=== PATIENT | male | born 1995 | race Caucasian/White ===

== ENCOUNTER 2016-10-26 22:59 | Emergency (ER) | payer BC ==
[2016-10-26] MEDS ORDERED: PREDNISONE 20 MG TAB PO ONE (23:14)
[2016-10-26] MEDS ORDERED: CEFDINIR 300 MG CAPSULE PO ONE (23:14)
--- NOTE | 2016-10-26 23:15 | Emergency Department Record ---
History of Present Illness - General Chief complaint: Rash Stated complaint: RASH Time Seen by Provider: 10/26/16 23:11 Source: Patient Mode of Arrival: Ambulatory Limitations: No limitations - History of Present Illness Initial comments: 21 yo male presents to ED with a CC of a rash that began tonight. Patient reports that he was started on Amoxicillin 5 days ago for strep pharyngitis, noticed itching and redness to the chest and upper extremities tonight. Patient denies throat swelling, wheezing, or difficulty breathing. Patient denies health problems at her baselines. MD complaint: Rash Onset/Timin -: Minutes(s) Location: Chest, LUE, RUE Severity: Moderate Consistency: Constant Improves with: None Worsens with: None Context: Recent antibiotic Associated symptoms: Denies other symptoms Treatments Prior to Arrival: None - Related Data Previous Rx's Medication Instructions Recorded Cefdinir [Omnicef] 300 mg PO BID #9 cap 10/26/16 Prednisone [Prednisone 20Mg] 20 mg PO TID #12 tab 10/26/16 Allergies Allergy/AdvReac Type Severity Reaction Status Date / Time No Known Drug Allergies Allergy Verified 10/26/16 23:03 Travel Screening - Travel/Exposure Within Last 30 Days Have you traveled within the last 30 days?: No - Travel Symptoms Symptom Screening: None Review of Systems Constitutional: Denies: Chills, Fever, Malaise, Night sweats Eyes: Denies: Eye discharge, Eye pain ENT: Denies: Congestion, Ear pain, Epistaxis Respiratory: Denies: Cough, Dyspnea Cardiovascular: Denies: Chest pain, Dyspnea on exertion Endocrine: Denies: Fatigue, Heat or cold intolerance Gastrointestinal: Denies: Abdominal pain, Nausea, Vomiting Genitourinary: Denies: Incontinence, Retention Musculoskeletal: Denies: Arthralgia, Back pain, Gout, Joint swelling Skin: Reports: Change in color, Rash. Denies: Bruising, Change in hair/nails Neurological: Denies: Abnormal gait, Confusion, Headache, Seizure Psychiatric: Denies: Anxiety Hematological/Lymphatic: Denies: Anemia, Blood Clots Past Medical History - SOCIAL HISTORY Smoking Status: Never smoker - RESPIRATORY Hx Respiratory Disorders: No - CARDIOVASCULAR Hx Cardio Disorders: No - NEURO Hx Neuro Disorders: No - GI Hx GI Disorders: No - Hx Genitourinary Disorders: No - ENDOCRINE Hx Endocrine Disorders: No - MUSCULOSKELETAL Hx Musculoskeletal Disorders: No - PSYCH Hx Psych Problems: No - HEMATOLOGY/ONCOLOGY Hx Hematology/Oncology Disorders: No Family Medical History Any Significant Family History?: Yes Hx Cancer: Grandparents Hx Diabetes: Grandparents Hx Heart Disease: Grandparents Physical Exam - General General Appearance: Alert, Oriented x3, Cooperative, No acute distress Limitations: No limitations - Head Head exam: Atraumatic, Normocephalic, Normal inspection Head exam detail: negative: Abrasion, Contusion, Redding's sign, General tenderness, Hematoma, Laceration - Eye Eye exam: Normal appearance. negative: Conjunctival injection, Periorbital swelling, Periorbital tenderness, Scleral icterus - ENT Ear exam: negative: Auricular hematoma, Auricular trauma Nasal Exam: negative: Active bleeding, Discharge, Dried blood, Foreign body Mouth exam: negative: Drooling, Laceration, Muffled voice, Tongue elevation - Neck Neck exam: Normal inspection. negative: Meningismus, Tenderness - Respiratory Respiratory exam: Normal lung sounds bilaterally. negative: Rales, Respiratory distress, Rhonchi, Stridor - Cardiovascular Cardiovascular Exam: Regular rate, Normal rhythm, Normal heart sounds - GI/Abdominal GI/Abdominal exam: Soft. negative: Rebound, Rigid, Tenderness - Rectal Rectal exam: Deferred - exam: Deferred - Extremities Extremities exam: Other (urticaria to the UE's and chest on examination). negative: Calf tenderness, Pedal edema, Tenderness - Back Back exam: Reports: Normal inspection. Denies: CVA tenderness (R), CVA tenderness (L) - Neurological Neurological exam: Alert, Normal gait, Oriented X3 - Psychiatric Psychiatric exam: Normal affect, Normal mood. negative: Anxious - Skin Skin exam: Rash, Urticaria Type of lesion: Rash Distribution of rash: Chest, RUE, LUE Description of rash: Urticarial Course Vital Signs 10/26/16 23:03 Temperature 97.9 F Pulse Rate [ 58 L Pulse Ox Probe] Respiratory 16 Rate Blood Pressure 135/83 [Left Arm] Pulse Ox 100 - Reevaluation(s) Reevaluation #1: 10/26/16 23:19 Symptoms appear c/w urticaria, likely secondary to amoxicillin use. Patient denies throat swelling or difficulty breathing, and appears stable for discharge on Prednisone and Benadryl for his symptoms. Patient was instructed to stop his amoxicillin and begin Omnicef tomorrow morning for complete treatment of the patient's strep pharyngitis. Disposition Disposition: Discharge Clinical Impression: Urticaria Disposition: Home, Self-Care Condition: (2) Stable Instructions: Urticaria (ED) Additional Instructions: Return to ED if your symptoms worsen or if you have any concerns. Omnicef and and Prednisone as directed. Follow-up with your family doctor in 3-5 days as directed. Prescriptions: Cefdinir [Omnicef] 300 mg PO BID #9 cap Prednisone [Prednisone 20Mg] 20 mg PO TID #12 tab Forms: Patient Portal Access Time of Disposition: 23:21
== END 2016-10-26 23:27 | disposition home or self-care (01) ==
LOC: ER 22:59
DX: L50.0 Allergic urticaria (principal); T36.0X5A Adverse effect of penicillins, initial encounter; J02.0 Streptococcal pharyngitis
CPT/HCPCS: J7512; J3490; 99282

== ENCOUNTER 2018-04-30 08:11 | Emergency (ER) | payer BC ==
[2018-04-30] MEDS ORDERED: 0.9 % SODIUM CHLORIDE 1,000 ML BAG IV ONE (08:23)
[2018-04-30] MEDS ORDERED: ACETAMINOPHEN 1,000 MG/100 ML BTL IVPB ONE (08:23)
[2018-04-30] MEDS ORDERED: MORPHINE SULFATE 10 MG/ML VIAL IVP ONE (08:23)
--- NOTE | 2018-04-30 08:30 | Emergency Department Record ---
History of Present Illness - General Chief Complaint: Abdominal Pain Stated Complaint: SEVERE ABDOMINAL PAIN Time Seen by Provider: 04/30/18 08:22 Source: Patient Mode of Arrival: Ambulatory Limitations: No limitations - History of Present Illness Initial Comments: 22 yo male presents with right sided abdominal pain. The pain started this morning. The pain is located mid upper right abdomen. No prior abdominal surgery history. No fever or chills. No vomiting or diarrhea today but he has a decreased appetite. He had diarrhea over the last week that has resolved today. He does have constipation from time to time. It is has been mild recently. No back pain. No radiation to the scrotum or testicles. No rash. Normally he is healthy. No trauma. MD Complaint: Abdominal pain -: Hour(s) (2) Location: RUQ Radiation: None Migration to: No migration Severity: Severe Severity scale (1-10): 10 Quality: Sharp Consistency: Constant Improves With: Nothing Worsens With: Nothing Associated Symptoms: Denies other symptoms - Related Data Home Medications Medication Instructions Recorded Confirmed Last Taken No Home Med [NO HOME MEDS] 04/30/18 04/30/18 Unknown Allergies Allergy/AdvReac Type Severity Reaction Status Date / Time amoxicillin Allergy RASH Verified 04/30/18 08:18 Travel Screening - Travel/Exposure Within Last 30 Days Have you traveled within the last 30 days?: No Review of Systems Constitutional: Denies: Chills, Fever, Malaise Eyes: Denies: Vision change ENT: Denies: Congestion, Throat pain Respiratory: Denies: Cough, Dyspnea Cardiovascular: Denies: Chest pain, Syncope Endocrine: Denies: Fatigue Gastrointestinal: Reports: As per HPI, Abdominal pain, Constipation ( occasionally), Diarrhea (resolved ), Nausea. Denies: Hematemesis, Hematochezia , Melena, Vomiting Genitourinary: Denies: Dysuria, Frequency, Hematuria Musculoskeletal: Denies: Arthralgia, Back pain, Myalgia Skin: Denies: Bruising, Change in color, Rash Neurological: Denies: Confusion, Headache Psychiatric: Denies: Anxiety Hematological/Lymphatic: Denies: Blood Clots, Easy bleeding, Easy bruising, Swollen glands Past Medical History - SOCIAL HISTORY Smoking Status: Never smoker Alcohol Use: Occasional Drug Use: None - RESPIRATORY Hx Respiratory Disorders: No - CARDIOVASCULAR Hx Cardio Disorders: No - NEURO Hx Neuro Disorders: No - GI Hx GI Disorders: No - Hx Genitourinary Disorders: No - ENDOCRINE Hx Endocrine Disorders: No - MUSCULOSKELETAL Hx Musculoskeletal Disorders: No - PSYCH Hx Psych Problems: No - HEMATOLOGY/ONCOLOGY Hx Hematology/Oncology Disorders: No Family Medical History Any Significant Family History?: Yes Hx Cancer: Grandparents Hx Diabetes: Grandparents Hx Heart Disease: Grandparents Physical Exam - General General Appearance: Alert, Oriented x3, Cooperative, No acute distress Limitations: No limitations - Head Head exam: Normal inspection - Eye Eye exam: Normal appearance, PERRL, Conjunctival injection. negative: Scleral icterus - ENT ENT exam: Normal exam, Mucous membranes moist, Normal orophraynx. negative: Mucous membranes dry Ear exam: Normal external inspection Nasal Exam: Normal inspection Mouth exam: Normal external inspection Teeth exam: Normal inspection. negative: Dental caries Throat exam: Normal inspection. negative: Tonsillar erythema, Tonsillar exudate - Neck Neck exam: Normal inspection, Full ROM. negative: Tenderness - Respiratory Respiratory exam: Normal lung sounds bilaterally. negative: Respiratory distress - Cardiovascular Cardiovascular Exam: Regular rate, Normal rhythm, Normal heart sounds - GI/Abdominal GI/Abdominal exam: Soft, Tenderness (tender upper,mid to lower right, soft abdomen). negative: Diminished bowel sounds, Distended, Guarding, Hernia, Rebound - Rectal Rectal exam: Deferred - exam: Deferred - Extremities Extremities exam: Normal inspection, Full ROM, Normal capillary refill. negative: Tenderness - Back Back exam: Reports: Normal inspection, Full ROM. Denies: CVA tenderness (R), CVA tenderness (L), Muscle spasm, Rash noted, Tenderness - Neurological Neurological exam: Alert, Normal gait, Oriented X3, Reflexes normal - Psychiatric Psychiatric exam: Normal affect, Normal mood. negative: Agitated, Anxious - Skin Skin exam: Dry, Intact, Normal color, Warm Course Vital Signs 04/30/18 08:15 Temperature 97.3 F L Pulse Rate 67 Respiratory 18 Rate Blood Pressure 137/84 Pulse Ox 100 - Reevaluation(s) Reevaluation #1: The vitals were reviewed. No acute abnormalities 04/30/18 08:31 04/30/18 08:35 The CBC was reviewed. No acute findings. 04/30/18 08:58 No acute changes on the CMP or lipase 04/30/18 12:[address] was reviewed. Normal appendix and terminal ileum. Bowels consistent with enteritis. Periportal edema correlate with labs. (Normal Liver panel) The patient was given the results. The labs, temperature are normal. We discussed home care, recheck and reasons for immediate return. Given his recent diarrhea the diagnosis of enteritis is possible. Medical Decision Making - Lab Data Result diagrams: 04/30/18 08:25 04/30/18 08:25 Disposition Disposition: Discharge Clinical Impression: Abdominal pain Qualifiers: Abdominal location: unspecified location Qualified Code(s): R10.9 - Unspecified abdominal pain Disposition: Home, Self-Care Condition: (1) Good Instructions: Constipation (ED), Abdominal Pain (ED) Additional Instructions: Stay hydrated Eat bland, low fat foods the next 1-2 days ([place], yogurt, bananas, broths, soup ) Return immediately to the ED in the next 1 day if the pain is not well controlled, and vomiting or fever. Call your doctor for a recheck first of the week or return to the ED to be re- evaluated. Forms: Patient Portal Access Quality - Quality Measures Quality Measures: N/A - Blood Pressure Screening Does Patient Have Any of the Following: No Blood Pressure Classification: Pre-Hypertensive BP Reading Systolic Measurement: 137 Diastolic Measurement: 84 Screening for High Blood Pressure: < Pre-Hypertensive BP, F/U Documented > [ [id number]] Pre-Hypertensive Follow-up Interventions: Referral to alternative/primary care provider.
[2018-04-30 08:34] LABS: EOS % 3.1 % (0-6); GRAN % 38.3 % (47-80); HEMOGLOBIN 15.7 gm/dl (14.0-18.0); LYMPH % 49.2 % (16-45); MEAN CELL VOLUME 87.7 fl (81-97); MEAN CORPUSCULAR HEMOGLOBIN 30.6 pg (27-33); MEAN CORPUSCULAR HGB CONC 34.9 g/dl (32-36); MEAN PLATELET VOLUME 10.4 fl (7.4-10.4); MONO % 8.4 % (0-9); PLATELET COUNT 203 K/uL (130-400); RED BLOOD COUNT 5.13 M/uL (4.40-5.70); RED CELL DISTRIBUTION WIDTH 13.3 % (11.5-14.5); WHITE BLOOD COUNT W/O DIFF 6.2 K/uL (4.2-12.2)
[2018-04-30 08:42] LABS: BLOOD UREA NITROGEN 14 mg/dL (6-20); CREATININE 0.8 mg/dL (0.7-1.2); EST GLOMERULAR FILTRATION RATE > 60 mL/min
[2018-04-30 08:43] LABS: TOTAL PROTEIN 7.3 g/dL (6.6-8.7)
[2018-04-30 08:45] LABS: GLUCOSE,RANDOM 92 mg/dL (74-109)
[2018-04-30 08:47] LABS: ALB/GLOB RATIO 1.9 (1.1-1.8); ALBUMIN 4.8 g/dL (4.0-5.0); ALKALINE PHOSPHATASE 74 U/L (40-129); ALT/SGPT 11 U/L (<41); AST/SGOT 20 U/L (10.0-50.0); LIPASE 28 U/L (13-60)
--- NOTE | 2018-05-01 14:43 | CT SCAN REPORT ---
EXAM: CT OF THE ABDOMEN AND PELVIS WITH CONTRAST HISTORY: RIGHT SIDED ABDOMINAL PAIN, DIARRHEA. TECHNIQUE: Routine CT images of the abdomen and pelvis were obtained following intravenous administration of contrast, amount and type of contrast in the medical record. Comparison: None. FINDINGS: The visualized lung bases are unremarkable. There is periportal edema within the liver. This could relate to volume overload from fluid resuscitation. Other processes including hepatitis could conceivably have this appearance. Please correlate clinically. The gallbladder pancreas, spleen, adrenals and kidneys have a normal appearance. The kidneys excrete contrast normally. No focally dilated loop of bowel. Oral contrast has transmitted into the small bowel loops at the time of imaging. The appendix has a normal appearance. There does appear to be wall thickening involving multiple small bowel loops within the abdomen probably related to enteritis. No clear abnormality involving the terminal ileum. There is a moderate volume of stool in the colon. The bladder is unremarkable. Moderate free fluid in the pelvis probably related to enteritis. The aorta enhances normally with contrast. No abdominal or pelvis lymphadenopathy. The abdominal wall soft tissues are unremarkable. No acute osseous abnormality. IMPRESSION: 1. THERE IS SCATTERED SMALL BOWEL WALL THICKENING COMPATIBLE WITH ENTERITIS. 2. NORMAL APPEARANCE OF THE APPENDIX. 3. MILD FREE FLUID IN THE PELVIS PRESUMABLY RELATED TO UNDERLYING ENTERITIS. 4. NONSPECIFIC PERIPORTAL EDEMA WHICH MAY RELATE TO REHYDRATION. ALTERNATIVE CAUSES INCLUDING HEPATITIS WOULD BE POSSIBLE. CORRELATE CLINICALLY. JOB NUMBER: [id number] [facility]
== END 2018-04-30 12:20 | disposition home or self-care (01) ==
LOC: ER 08:11
DX: R10.11 Right upper quadrant pain (principal); R19.7 Diarrhea, unspecified
CPT/HCPCS: 74177; 80053; 83690; 85025; 96361; 96365; 96375; 99284; J2270; J7030